=== PATIENT | female | born 1935 | race Caucasian/White ===

== ENCOUNTER 2017-03-05 09:05 | Inpatient (IN) ==
[2017-03-05] MEDS ORDERED: SODIUM CHLORIDE 0.9% 500 ML IV STA (09:40)
--- NOTE | 2017-03-05 09:45 | Emergency Department Note ---
Alcides Barlow Hilary, am scribing for, and in the presence of, Lj Horn MD 09: 44. Justina Barlow James D, MD, personally performed the services described in this documentation, ascribed by Lilia Mcgrath in my presence, and it is both accurate and complete 944 . Arrival - Arrival Chief Complaint: Neuro Stated Complaint: both legs problems and arms went out ED Nursing Triage Note: reports started having trouble moving her legs on thursday night. has to hold onto something to walk. reports also has been having some trouble with her right arm and it feels floppy. reports feels a little confused. has a hx of left femur fx in november. Mode of Arrival: Wheelchair Limitations: No Limitations Source: Patient, RN Notes Reviewed - History of Present Illness HPI Narrative: Pt is a 81 y/o female presenting to the ED with c/o right sided weakness which onset 2 days ago. Pt states that 2 days she woke up and her right leg was "dragging" and she wasn't walking well and now her right arm feels "funny". Last known well time is when she went to bed on 03/02/17. She confirms right sided weakness but denies WYNNE or blurry vision. Pt has a PMHX of HTN, TIA, Dyslipidemia and IBS. No other complaints or problems stated in the ED. Onset (ago): day(s) Consistency: constant Severity: mild Severity scale (1-10): 1 Allergies/Adverse Reactions: Allergies Allergy/AdvReac Type Severity Reaction Status Date / Time codeine Allergy Unknown/Unable Verified 03/05/17 09:24 to obtain Penicillins Allergy Unknown/Unable Verified 03/05/17 09:24 to obtain Sulfa (Sulfonamide Allergy Unknown/Unable Verified 03/05/17 09:24 Antibiotics) to obtain Review of System - Review of System 12 point system: reviewed and no additional remarkable complaints except as stated - Review of System Constitutional: Present: weakness. Absent: fever Eyes: Absent: vision change Neurological: Present: weakness. Absent: headache Medical,Surgical,& Family Hx - Medical History Cardio: History of: Hypertension Neurology: History of: TIA Endocrine: History of: Dyslipidemia Gastrointestinal: History of: GI Problems (ibs) - Social History Smoking Status: Former smoker Exam Physical Examination: GENERAL: This is a well-nourished, well-developed white female in no apparent distress. VITAL SIGNS: Temperature: 97.4 Pulse: 70 Respiratory: 18 Blood Pressure: 107 /77 O2 Sat: 95 HEENT: Head is normocephalic and atraumatic. Pupils are equally round and reactive to light. Extraocular movement are intact. Oropharynx is benign with moist mucous membranes. NECK: Neck is soft and supple without tenderness. There are no masses. There is no lymphadenopathy. LUNGS: Lungs are clear to auscultation bilaterally. Chest rises symmetrically. There is no chest wall tenderness. CV: Heart is regular rate and rhythm without murmurs, rubs, or gallops. ABDOMEN: Abdomen is soft, non-tender to palpation. There are no abnormal masses palpated. There is no organomegaly. Bowel sounds are present and active. SKIN: Skin is warm and dry. No rash. EXTREMITIES: Patient has full range of motion without tenderness. There is no pedal edema. NEUROLOGIC: Awake, alert, and oriented x4. Cranial nerves II through XII are grossly intact. Right upper extremity weakness 4/5, right lower extremity weakness 4/5, all other extremities 5/5. There is no visual deficit. PSYCHIATRIC: Normal affect. Normal mood. Vital Signs: Vital Signs Temperature 97.4 F L 03/05/17 09:18 Pulse Rate 70 03/05/17 09:18 Respiratory Rate 18 03/05/17 09:18 Blood Pressure 107/77 03/05/17 09:18 O2 Sat by Pulse Oximetry 95 03/05/17 09:18 Course Course Narrative: Patient is not a candidate for TPA due to length of time since onset of symptoms. Last known well time was bedtime of 03/02/2017. - Consultations Consultation #1: Discussed with hospitalist. Patient will be admitted to their service. Time: 11:03 Results - Labs CBC & BMP: 03/05/17 10:05 03/05/17 10:05 Lab Results: I have reviewed the patients labs - EKG EKG results: interpreted by ERMD - Impressions EKG: Normal sinus rhythm with rate of 61, low voltage QRS, old anterior and old inferior [place]. Normal axis. - Diagnostic Findings Procedure: Chest x-ray: image reviewed by me (No infiltrates, no pleural effusions.), CT: image reviewed by me (CT head: No acute intracranial lesion or hemorrhage) Disposition Clinical Impression: Stroke Case discussed with: patient, patient's family Disposition: Still a Patient Condition: Stable NIH Stroke Score - Stroke Score Initial Assessment Level of Consciousness: Alert Level of Consciousness Questions: Answers Both Correctly Level of Consciousness Commands: Obeys Both Correctly Best Gaze: Normal Visual Hickman: No Visual Loss Facial Palsy: Normal Motor - Right Arm: Drift Motor - Left Arm: No Drift Motor - Right Leg: Drift Motor - Left Leg: No Drift Limb Ataxia: Absent Sensory (Pin Prick): Normal Best Language: Normal Dysarthria: Normal Extinction / Inattention (Neglect): No Neglect NIH Stroke Score: 2
--- NOTE | 2017-03-05 10:17 | EKG Report ---
Stationary ECG Study [facility] ER Test Date: 03/05/2017 10:15:09 AM Pat Name: ERLIN LANDON Department: Room: Gender: F Business Services Representative: : 1935 Requested by: Lj Hernandez Order Number: [id number] Reading MD: PADMINI CALERO Intervals [place] Rate: 61 P: 18 [place]: 142 QRS: 0 QRSD: 76 T: 40 QT: 410 QTc: 412 Interpretive Statements SINUS RHYTHM WITH OCCASIONAL VENTRICULAR PREMATURE COMPLEXES LOW QRS VOLTAGE IN PRECORDIAL LEADS POSSIBLE ANTERIOR MYOCARDIAL INFARCTION, PROBABLY OLD PROBABLE INFERIOR MYOCARDIAL INFARCTION, PROBABLY OLD Electronically Signed On 03-05-17 18:54:30 CDT by PADMINI CALERO [email or web address]
--- NOTE | 2017-03-05 10:22 | CT Report ---
Exam: CT scan of brain without contrast Date: 03/05/2017 Indication: Hemiparesis Comparison: None Patient's classification: Emergency department Technical: Images were obtained from the skull base to the vertex without the use of intravenous contrast. Dose reduction was performed with decreasing kv and mA and automated exposure Total DLP: 1025.6 mGy*cm Findings: The brainstem is unremarkable. The cerebellum is intact. Cerebral hemispheres reveal mild atrophic changes of the frontal lobes. The ventricles are slightly prominent. The paranasal sinuses globes and sella and mastoids are intact. Minimal vascular plaque in the internal carotid arteries. Impression: 1.Mild atrophy and small vessel disease without acute hemorrhage, infarction or mass effect. PROCEDURE INTERPRETED AT [facility] DEPARTMENT OF RADIOLOGY Final Report Signed by: Dr. Madi Lamas
[2017-03-05 10:24] LABS: Basophils % 0.6 % (0.0-0.8); Eosinophils # 0.1 10*3/uL (0.0-0.87); Eosinophils % 0.8 % (0.00-10.9); Hematocrit 42.8 VOL% (35.7-47.0); Hemoglobin 14.5 GM/DL (12.0-16.0); Immature Granulocytes % 0.5 %; Immature Granulocytes Absolute 0.03 #; Lymphocytes % 32.4 % (21.3-54.2); Mean Corpuscular HGB Conc 33.9 GM/DL (32-36); Mean Corpuscular Hemoglobin 33 PG (27-34); Mean Corpuscular Volume 97.5 FL (87-102); Monocytes # 0.4 10*3/uL (0.11-0.8); Monocytes % 5.6 % (1.7-12.7); Neutrophils # 3.7 10*3/uL (1.4-7.4); Neutrophils % 60.1 % (38.7-73.9); Platelet Count 222 T/CUMM (130-400); Red Blood Count 4.39 MC/CUMM (3.8-5.5); Red Cell Distribution Width 12.8 % (9.3-17.3); White Blood Count 6.2 T/CUMM (4-12)
--- NOTE | 2017-03-05 10:29 | XRay Report ---
Exam: XR chest 1V portable Date: 03/05/2017 9:41 AM Indication: Cardiomegaly Comparison: 07/22/2012 Technical: AP Findings: Mild interstitial thickening in the perihilar regions. There is a component of scarring suspected in the perihilar regions. Tiny low volume effusions are questioned. Epidural catheter leads have been removed with vertebral plasty changes at the lower thoracic spine. ASVD is present. Impression: 1. Mild interstitial thickening scarring in the perihilar regions. Tiny low volume effusions present suggests possible mild interstitial edema CHF 2. Previous vertebral plasty 3. Removal of the epidural catheter leads PROCEDURE INTERPRETED AT [facility] DEPARTMENT OF RADIOLOGY Final Report Signed by: Dr. Madi Lamas
[2017-03-05 10:49] LABS: PT Patient Result 10.6 SECS; Partial Thromboplastin Time 28.5 SECS (0-40)
[2017-03-05 10:52] LABS: Alanine Aminotransferase 29 U/L (13-56); Albumin 4.3 G/DL (3.4-5.0); Alkaline Phosphatase 127 U/L (45-117); Aspartate Amino Transferase 18 U/L (0-37); Blood Urea Nitrogen 19 MG/DL (7-18); Calcium 9.4 MG/DL (8.5-10.1); Glucose 100 MG/DL (74-106); Osmolality,Calculated 276.7 MOS/KG (273-304); Potassium 4.5 MMOL/L (3.5-5.1); Sodium 138 MMOL/L (136-145); Total Protein 7.6 G/DL (6.4-8.3); Troponin I Only < 0.015 NG/ML (0.00-0.045)
[2017-03-05 10:53] LABS: Apearance,Urine CLEAR (Clear); Bilirubin,Urine Negative (Negative); Blood, Urine Negative (Negative); Glucose,Urine (UA) Negative (Negative); Ketones,Urine Negative (Negative); Nitrite,Urine Negative (Negative); Protein,Urine Negative; RBC,Urine <1 /HPF (0-4); Urine Color Yellow (Yellow); Urine Specific Gravity 1.009 (1.001-1.035); Urine Urobilinogen < 2.0 EU/DL (0.2-1.0); WBC,Urine <1 /HPF (0-6)
[2017-03-05 11:00] LABS: Barbiturates Screen,Urine Negative (Negative); Benzodiazepines Screen,Urine Negative (Negative); Cannabinoid Screen,Urine Negative (Negative); Opiate Screen,Urine Negative (Negative); Phencyclidine Screen,Urine Negative (Negative)
--- NOTE | 2017-03-05 11:58 | Hospitalist History & Physical ---
<Michelle Bauer - Last Filed: 03/05/17 12:24> Assessment and Plan - Time spent with patient Time spent with patient: Greater than 30 minutes (1) Stroke Status: Acute Assessment and plan: 03/05/17 - Will Admit for close Monitoring Notable right sided weakness in arm and leg since Thursday ASA 325mg MRI w/o contrast MRA w/con Manage BP Lipids Carotid US Echo Consult Dr Devries (Neurology) Will discuss with Dr Cochran for further recommendations with care. Current Visit: Yes History of Present Illness Chief complaint: right sided weakness History of present illness: Ms. Frias is a 81 year old white female w/PMHx Hypertension, TIA, dyslipidemia , IBS presented to the ED for further evaluation of right sided arm and leg weakness since Thursday and she noted when she walked using her walker, her right foot would drag behind her. She denies headache, chest pain, shortness of breath, cough, fever or chills. IN ED: Head CT: mild atrophy and small vessel disease without acute hemorrhage, infarction or mass effect. CXR: mild interstitial thickening scarring in the perihilar regions, tiny effusions , mild interstitial edema CHF. Significant LABS: electrolytes WNL, H&H stable , BUN 19 creatinine 0.80. Urinalysis negative. Toxicology negative. She denies smoking (ex-smoker), alcohol intake or illicit drug use. She lives at home alone and performs daily self care without assistance. After discussion with Dr Horn in the ED and Dr Cochran with Hospital Services, it was agreed to admit patient for further evaluation of right sided weakness possible TIA symptoms to the right side. Home medications to be reviewed and reconciliation to follow. Home Medications Medication Instructions Recorded Confirmed Type Aspirin EC Tab 81 mg PO QAM 03/05/17 03/05/17 History Gabapentin [Gabapentin] 300 mg PO QAM 03/05/17 03/05/17 History Loperamide HCl [Loperamide] 2 mg PO QAM PRN 03/05/17 03/05/17 History Sertraline HCl [Sertraline HCl] 100 mg PO QAM 03/05/17 03/05/17 History Valsartan/Hydrochlorothiazide 1 each PO QAM 03/05/17 03/05/17 History [Valsartan-Hctz 160-12.5 mg Tab] carBAMazepine XR TAB [TEGretol XR] 200 mg PO Q12H 03/05/17 03/05/17 History cycloSPORINE OPH EMUL [Restasis] 1 drop BOTH EYES QAM 03/05/17 03/05/17 History Allergies Allergy/AdvReac Type Severity Reaction Status Date / Time codeine Allergy Unknown/Unable Verified 03/05/17 09:24 to obtain Penicillins Allergy Unknown/Unable Verified 03/05/17 09:24 to obtain Sulfa (Sulfonamide Allergy Unknown/Unable Verified 03/05/17 09:24 Antibiotics) to obtain Medical,Surgical,& Family Hx - Medical History Cardio: History of: Hypertension Neurology: History of: TIA Endocrine: History of: Dyslipidemia Gastrointestinal: History of: GI Problems (ibs) - Surgical History Orthopedic Surgeries: Surgical HX of;: Orthopedic Surgery (Femur Fracture repair in November 2016) - Social History Smoking Status: Former smoker Frequency of Alcohol Use: None Type of Drug Use: None Marital Status: Lives With:: Alone Functional capacity: uses cane/walker 12 point system: reviewed and no additional remarkable complaints except as stated - Constitutional Constitutional: Absent: chills, fatigue, fever(s), frequent falls, headache(s) - EENT Eyes: Absent: loss of vision Nose, mouth and throat: Absent: headache(s) - Cardiovascular Cardiovascular: Absent: chest pain at rest, chest pain with activity, diaphoresis, dyspnea, dyspnea on exertion - Respiratory Respiratory: Absent: cough, hemoptysis - Neurological Neurological: Present: abnormal gait (dragging right foot with ambulation;right sided arm and leg weakness) - Psychiatric Psychiatric: Absent: anxiety Exam - Constitutional Vitals: Period Temp Pulse Resp BP Sys/Gracia Pulse Ox Last 24 Hr 97.4 F-97.4 F 70-70 18-18 107-107/77-77 95 General appearance: normal weight, no acute distress - Head Head exam: Present: normal inspection - Eye Eye exam: Present: EOMI Pupils: Present: JONNATHAN - Neck Neck exam: Present: normal inspection. Absent: thyromegaly - Respiratory Respiratory exam: Present: clear to auscultation bilaterally. Absent: rhonchi, stridor, wheezes - Cardiovascular Cardiovascular exam: Present: regular rate and rhythm - GI/Abdominal GI/Abdominal exam: Present: normal bowel sounds, soft. Absent: tenderness, rebound - Extremities Exam Extremities exam: Present: normal inspection, full ROM, edema - Expanded Right Upper Extremity General: Present: normal inspection (right arm strength is notable weak compared to the left) Upper Arm exam: Present: full ROM. Absent: swelling, tenderness, pain Elbow exam: Present: full ROM. Absent: tenderness Forearm wrist exam: Present: normal inspection, full ROM. Absent: tenderness Vascular: Present: brachial pulse - Expanded Right Lower Hip exam: Present: normal inspection, full ROM Lower leg exam: Present: normal inspection, full ROM. Absent: swelling, tenderness Foot/Toe exam: Present: normal inspection (sluggish with movement to right foot and toes, able to lift from bed but with more effort than the left side), full ROM - Neurological Exam Neurological exam: Present: alert, oriented X3 - Psychiatric Psychiatric exam: Present: normal affect, normal mood. Absent: agitated, anxious - Skin Skin exam: Present: normal color, warm, dry Results - Labs CBC & BMP: 03/05/17 10:05 03/05/17 10:05 Lab Results: I have reviewed the past 24 hour labs - EKG EKG results: interpreted by ERMD - Impressions EKG: Normal sinus rhythm with rate of 61, low voltage QRS, old anterior and old inferior [place]. Normal axis. - Diagnostic Findings Procedure: Chest x-ray: report reviewed by me (Mild interstitial thickening in the perihilar region, component of scarring suspected in perihilar region, tiny low volume effusion, epidural catheter leads have been removed with vertebral plasty changes lower thoracic spine), CT: report reviewed by me (Head: Mild atrophy and small vessel disease without acute hemorrhage, infarction or mass effect) Quality Measures - Stroke Onset of Symptoms Date: 03/02/17 <Alvin Cochran - Last Filed: 03/05/17 14:25> History of Present Illness History of present illness: Ms. Frias is a 81 year old female who is being admitted to the hospital with weakness of her right foot and leg. She has a previous history of cerebrovascular disease. CT scan of the head performed in the emergency department demonstrated no acute abnormalities. I have interviewed the patient , examined the patient, and reviewed all the available laboratory and radiographic test results. I agree with the assessment and plans of Michelle Bauer NP. The patient will be admitted to the hospital. She will undergo an MRI and an MRA of the head. She will be treated with aspirin, clopidogrel, and atorvastatin. Neurology has been consulted. Exam - Constitutional Vitals: Period Temp Pulse Resp BP Sys/Gracia Pulse Ox Last 24 Hr 97.4 F-97.4 F 52-70 16-19 107-173/54-98 95-100 Results - Labs CBC & BMP: 03/05/17 10:05 03/05/17 10:05
[2017-03-05] MEDS ORDERED: LABETALOL 20 MG/4 ML SYRINGE IV PRN (12:15)
--- NOTE | 2017-03-05 13:52 | Ultrasound Report ---
Exam: US carotid duplex BI Date: 03/05/2017 12:22 PM Indication: Right-sided weakness TIA Findings: Grayscale color flow analysis and spectral analysis imaging was performed with image stored and captured. Right Side Flow velocities centimeters per second Common carotid artery: 47 Proximal ICA: 42 Distal ICA: 72 External carotid artery: 63 Vertebral artery: 57 ICA/CCA ratio: 1.5 Measurements in millimeters Distal ICA: 3.3 Left SIde Flow velocities centimeters per second Common carotid artery: 63 Proximal ICA: 100 Distal ICA: 113 External carotid artery: 59 Vertebral artery: 61 ICA/CCA ratio: 1.8 Measurements in millimeters Distal ICA: 5.3 Moderate plaque present bilaterally with spectral broadening with some minimal color Mosaic flow present. Impression: 1. 16-49% stenosis suspected bilaterally. If further evaluation is warranted CT angiography may be beneficial Today studies were performed utilizing indirect NASCET criteria The ultrasound images were stored and captured PROCEDURE INTERPRETED AT [facility] DEPARTMENT OF RADIOLOGY Final Report Signed by: Dr. Madi Lamas
--- NOTE | 2017-03-05 16:44 | Magnetic Resonance Report ---
Exam: MRI brain without contrast Exam date: March 05, 2017 at 1612 hours Indication: Recurrent migraines with seizures Comparison: No relevant comparisons Technique: Multiplanar, multisequence magnetic resonance imaging of the brain without intravenous contrast was performed in routine fashion. Axial, coronal and sagittal images submitted for interpretation Findings: Parenchyma: Diffusion restriction involving the left parietal periventricular white matter and posterior external capsule consistent with acute infarction. Scattered punctate areas of T2/FLAIR hyperintensity throughout the deep white matter consistent with microangiopathic small vessel ischemic disease. No mass or midline shift. No intra or extra-axial hemorrhage. Ventricles and sulci: Normal in size and configuration Posterior fossa: Cerebellum, brainstem and cervicomedullary junction are preserved Orbits and sinuses: Globes and orbits are intact. Periorbital and pericavernous spaces are normal. Mild inflammatory changes of the ethmoid sinuses Sella: Pituitary is normal. Osseous: No abnormality of the skull base or calvarium is identified Impression: 1. Acute infarction involving the left parietal lobe and external capsule. 2. Mild microangiopathic small vessel ischemic changes. PROCEDURE INTERPRETED AT [facility] DEPARTMENT OF RADIOLOGY Final Report Signed by: Dread Lucas
[2017-03-05 17:26] LABS: Cholesterol 203 MG/DL (50-200); HDL Cholesterol 63 MG/DL (40-60); Risk Ratio 3.22; Triglycerides 190 MG/DL (2-150); Troponin I Only < 0.015 NG/ML (0.00-0.045)
[2017-03-05] MEDS: SODIUM CHLORIDE 0.9% 1,000 ML IV SCH (18:14)
[2017-03-05] MEDS: ASPIRIN 325 MG TABLET PO SCH (18:14)
--- NOTE | 2017-03-05 20:02 | ECHO Report ---
Xiao Frias Exam Date: 03/05/2017 13:04 Referring Physician: Technologist: Age: 81 Ht (in): Wt (lb): Gender: F Exam Location: [facility] Echo Indications: BP: 107 / 77 HR: 70 Rhythm: Sinus Technical Quality: Poor IMPRESSIONS Normal LV systolic function, ejection fraction 60%. Regional wall motion as described below. Grade 1/4 diastolic dysfunction. Mild mitral and tricuspid regurgitation. MEASUREMENTS (Male / Female) Normal Values 2D ECHO LV Diastolic Diameter PLAX 4.0 cm 4.2 - 5.9 / 3.9 - 5.3 cm LV Systolic Diameter PLAX 2.3 cm LV Fractional Shortening PLAX 41.4 % IVS Diastolic Thickness 0.7 cm 0.6 - 1.0 / 0.6 - 0.9 cm LVPW Diastolic Thickness 0.6 cm 0.6 - 1.0 / 0.6 - 0.9 cm RV Internal Dim ED PLAX 3.1 cm Aortic Root Diameter 3.1 cm LA Systolic Diameter LX 4.0 cm 3.0 - 4.0 / 2.7 - 3.8 cm DOPPLER TR Peak Velocity 273.0 cm/s TR Peak Gradient 29.8 mmHg FINDINGS Left Ventricle Normal left ventricular cavity size. Normal left ventricular wall thickness. Left ventricular ejection fraction is estimated at 60%. There is very poor endocardial resolution which hinders regional wall motion assessment. The basal to mid inferior wall may be relatively more hypokinetic than the remainder of the myocardium. There is grade 1/4 diastolic dysfunction consistent with impaired relaxation. Right Ventricle The right ventricle is normal in size and function. Right Atrium The right atrium is normal in size. Left Atrium Size is at the upper limits of normal. Mitral Valve Morphologically normal mitral valve. Mild mitral valve regurgitation. Aortic Valve Morphologically normal aortic valve without significant sclerosis or stenosis. There is no aortic regurgitation. Tricuspid Valve Morphologically normal tricuspid valve. Mild tricuspid valve regurgitation. Tricuspid regurgitation velocities suggest a PAP of 40 mmHg. Pulmonic Valve Morphologically normal pulmonic valve without significant stenosis. There is no pulmonic regurgitation. Pericardium Normal pericardium without effusion. Aorta Normal ascending aorta dimension. Isha Villeda MD (Electronically Signed) Final Date: 05 March 2017 20:01
[2017-03-06] MEDS: SODIUM CHLORIDE 0.9% 1,000 ML IV SCH (03:34)
[2017-03-06 08:44] LABS: Basophils % 0.6 % (0.0-0.8); Eosinophils # 0.1 10*3/uL (0.0-0.87); Eosinophils % 2.5 % (0.00-10.9); Hematocrit 38.5 VOL% (35.7-47.0); Immature Granulocytes % 0.2 %; Immature Granulocytes Absolute 0.01 #; Lymphocytes # 1.8 10*3/uL (1.4-4.0); Lymphocytes % 37.4 % (21.3-54.2); Mean Corpuscular HGB Conc 33.8 GM/DL (32-36); Mean Corpuscular Hemoglobin 33 PG (27-34); Mean Corpuscular Volume 98.5 FL (87-102); Mean Platelet Volume 10.1 FL (9.6-12.0); Monocytes # 0.2 10*3/uL (0.11-0.8); Monocytes % 3.9 % (1.7-12.7); Neutrophils # 2.7 10*3/uL (1.4-7.4); Neutrophils % 55.4 % (38.7-73.9); Platelet Count 206 T/CUMM (130-400); Red Blood Count 3.91 MC/CUMM (3.8-5.5); Red Cell Distribution Width 12.7 % (9.3-17.3); White Blood Count 4.8 T/CUMM (4-12)
[2017-03-06] MEDS: ASPIRIN 325 MG TABLET PO SCH (09:01)
[2017-03-06 09:03] LABS: Calcium 9.1 MG/DL (8.5-10.1); Osmolality,Calculated 282.4 MOS/KG (273-304); Potassium 4.5 MMOL/L (3.5-5.1)
[2017-03-06] MEDS ORDERED: LOPERAMIDE 2 MG CAPSULE PO PRN (09:34)
[2017-03-06] MEDS ORDERED: VALSARTAN/HCTZ 160-12.5 MG TABLET PO SCH (10:00)
[2017-03-06] MEDS ORDERED: SERTRALINE 100 MG TABLET PO SCH (10:00)
[2017-03-06] MEDS ORDERED: GABAPENTIN 300 MG CAPSULE PO SCH (10:00)
--- NOTE | 2017-03-06 11:12 | Discharge Summary ---
Hospital Course - Hospital Course Hospital Course: Mrs Frias presented after several days of weakness in her right side that wasn' t getting better. She has stroke by exam and L basal ganglia stroke seen on MRI brain. carotids unremarkable and echo with normal EF, no clot. Tchol 203. She is accepted to [facility] this morning and will go today for rehab. She has been on asa already- change to Plavix. Recommend adding statin to her regimen- Dr Jaycob huntley. - Time spent with patient Time with patient DS: Greater than 30 minutes (36 minutes spent in coordinating care, medicine reconciliation, documentation.) Diagnosis - Discharge Diagnosis (1) Acute CVA (cerebrovascular accident) Status: Acute (2) Hyperlipidemia Status: Chronic (3) Hypertension Status: Chronic Specialty Discharge - Follow Up or Referrals Follow up with: Your, PCP [Other] (when DC from [facility] ) Discharge Plan - Discharge Data Disposition: Disch/Xfer-Ip Rehab Fac Condition at Discharge: Stable Discharge Diet: heart healthy Activity: as per physical therapy - Discharge Medications New Clopidogrel [Plavix] 75 mg PO DAILY tablet Continue cycloSPORINE OPH EMUL [Restasis] 1 drop BOTH EYES QAM carBAMazepine XR TAB [TEGretol XR] 200 mg PO Q12H Valsartan/Hydrochlorothiazide [Valsartan-Hctz 160-12.5 mg Tab] 1 each PO QAM Loperamide HCl [Loperamide] 2 mg PO QAM PRN PRN Reason: Diarrhea Gabapentin 300 mg PO QAM Sertraline HCl 100 mg PO QAM Aspirin EC Tab 81 mg PO QAM - Follow Up or Referral Follow Up: Your, PCP [Other] (when DC from [facility] ) - Forms/Instructions Instructions: Ischemic Stroke (DC) Exam - Constitutional Vitals: Period Temp Pulse Resp BP Sys/Gracia Pulse Ox Last 24 Hr 97.0 F-98.2 F 52-66 16-20 121-173/56-85 93-100 General appearance: normal weight, no acute distress - Eye Eye exam: Present: EOMI. Absent: scleral icterus - Respiratory Respiratory exam: Present: clear to auscultation bilaterally - Cardiovascular Cardiovascular exam: Present: regular rate and rhythm - GI/Abdominal GI/Abdominal exam: Present: normal bowel sounds, soft. Absent: tenderness - Extremities Exam Extremities exam: Absent: edema - Neurological Exam Neurological exam: Present: alert, oriented X3, CN II-XII intact, motor sensory deficit (right upper and lower extremity weakness) Discharge Results Labs on day of discharge: Labs from last 24 hours 03/06/17 03/06/17 03/06/17 08:35 08:35 08:35 WBC 4.8 RBC 3.91 Hgb 13.0 Hct 38.5 MCV 98.5 MCH 33 MCHC 33.8 RDW 12.7 Plt Count 206 MPV 10.1 Neut % (Auto) 55.4 Lymph % (Auto) 37.4 Garvin % (Auto) 3.9 Eos % (Auto) 2.5 Baso % (Auto) 0.6 Neut # (Auto) 2.7 Lymph # (Auto) 1.8 Garvin # (Auto) 0.2 Eos # (Auto) 0.1 Baso # (Auto) 0.0 Immature Gran % 0.2 Nucleated RBC % 0.0 Immature Gran # 0.01 Nucleated RBCs # 0.00 Immature Plt Fraction 0.0 Circ Anticoag PTT 25.8 Sodium 140 Potassium 4.5 Chloride 105 Carbon Dioxide 30 Anion Gap 9.5 BUN 19 H Creatinine 0.80 GFR Calculation 61 BUN/Creatinine Ratio 23.00 H Glucose 136 H Hemoglobin A1c Calculated Osmolality 282.4 Calcium 9.1 Troponin I Triglycerides Cholesterol LDL Cholesterol VLDL Cholesterol HDL Cholesterol Heart Disease Risk Ratio 03/05/17 03/05/17 03/05/17 21:26 19:04 15:38 WBC RBC Hgb Hct MCV MCH MCHC RDW Plt Count MPV Neut % (Auto) Lymph % (Auto) Garvin % (Auto) Eos % (Auto) Baso % (Auto) Neut # (Auto) Lymph # (Auto) Garvin # (Auto) Eos # (Auto) Baso # (Auto) Immature Gran % Nucleated RBC % Immature Gran # Nucleated RBCs # Immature Plt Fraction Circ Anticoag PTT Sodium Potassium Chloride Carbon Dioxide Anion Gap BUN Creatinine GFR Calculation BUN/Creatinine Ratio Glucose Hemoglobin A1c Calculated Osmolality Calcium Troponin I < 0.015 < 0.015 < 0.015 Triglycerides 190 H Cholesterol 203 H LDL Cholesterol 113.0 VLDL Cholesterol 38.0 HDL Cholesterol 63 H Heart Disease Risk Ratio 3.22 03/05/17 10:05 WBC RBC Hgb Hct MCV MCH MCHC RDW Plt Count MPV Neut % (Auto) Lymph % (Auto) Garvin % (Auto) Eos % (Auto) Baso % (Auto) Neut # (Auto) Lymph # (Auto) Garvin # (Auto) Eos # (Auto) Baso # (Auto) Immature Gran % Nucleated RBC % Immature Gran # Nucleated RBCs # Immature Plt Fraction Circ Anticoag PTT Sodium Potassium Chloride Carbon Dioxide Anion Gap BUN Creatinine GFR Calculation BUN/Creatinine Ratio Glucose Hemoglobin A1c 5.8 Calculated Osmolality Calcium Troponin I Triglycerides Cholesterol LDL Cholesterol VLDL Cholesterol HDL Cholesterol Heart Disease Risk Ratio DS: Provider Date of admission: 03/05/17 11:23 Primary care physician: Cece Fowler Attending physician on admission: Alvin Cochran Consults: 03/05/17 12:15 Consult to Case Mgmt/Social Srvs [CONS] Routine Reason for Case Mgmt/Social Srvs: Discharge Planning Consult to Occupational Therapy [CONS] Routine Reason for Occupational Therapy: Evaluate and Treat Consult Comment: Stroke Consult to Physical Therapy [CONS] Routine Reason for Physical Therapy: Evaluate and Treat Consult Comment: stroke 03/05/17 12:21 Consult to Physician [CONS] Routine Comment: Consulting Provider: Larry Devries Consulting Provider Notified: Yes When should Consulting Provider be notified: Now Consult to Specialist Group: Neurology When should Consulting Provider be notified: Now Person Notified: MERRY Date Notified: 03/05/17 Time Notified: 15:34 Consult Notification Comment: right sided weakness (arm and leg) with foot drag with ambulation onset of Thursday Morning Discharging clinician: Joy Merrill MD
--- NOTE | 2017-03-06 11:28 | Neurology Consult Note ---
History of Present Illness History of present illness: Ms. Frias is a 81 year old right-handed white lady w/PMHx significant for hypertension, TIA, dyslipidemia, IBS presented to the ED for further evaluation of right arm and leg weakness since Thursday morning and she noted when she walked using her walker, her right foot would drag behind her. She denies headache, chest pain, shortness of breath, cough, fever or chills. No speech difficulties or swallowing problems reported. She has marked difficulty in walking at this point. She lives at home alone and performs daily self care without assistance. MRI of the brain left basal ganglia acute infarct. Carotid ultrasound is unremarkable. Echocardiogram showed ejection fraction of 60%. Triglycerides 190 cholesterol 203. Home Medications Medication Instructions Recorded Confirmed Type Aspirin EC Tab 81 mg PO QAM 03/05/17 03/05/17 History Gabapentin 300 mg PO QAM 03/05/17 03/05/17 History Loperamide HCl [Loperamide] 2 mg PO QAM PRN 03/05/17 03/05/17 History Sertraline HCl 100 mg PO QAM 03/05/17 03/05/17 History Valsartan/Hydrochlorothiazide 1 each PO QAM 03/05/17 03/05/17 History [Valsartan-Hctz 160-12.5 mg Tab] carBAMazepine XR TAB [TEGretol XR] 200 mg PO Q12H 03/05/17 03/05/17 History cycloSPORINE OPH EMUL [Restasis] 1 drop BOTH EYES QAM 03/05/17 03/05/17 History Clopidogrel [Plavix] 75 mg PO DAILY tablet 03/06/17 Rx Allergies Allergy/AdvReac Type Severity Reaction Status Date / Time codeine Allergy Unknown/Unable Verified 03/05/17 09:24 to obtain Penicillins Allergy Unknown/Unable Verified 03/05/17 09:24 to obtain Sulfa (Sulfonamide Allergy Unknown/Unable Verified 03/05/17 09:24 Antibiotics) to obtain 12 point system: reviewed and no additional remarkable complaints except as stated Medical,Surgical,& Family Hx - Medical History Cardio: History of: Hypertension Neurology: History of: TIA Endocrine: History of: Dyslipidemia Gastrointestinal: History of: GI Problems (ibs) - Surgical History Orthopedic Surgeries: Surgical HX of;: Orthopedic Surgery (Femur Fracture repair in November 2016) - Social History Smoking Status: Former smoker Frequency of Alcohol Use: None Type of Drug Use: None Exam - Constitutional Vitals: Period Temp Pulse Resp BP Sys/Gracia Pulse Ox Last 24 Hr 97.0 F-98.2 F 52-66 16-20 121-173/56-85 93-100 Exam: GENERAL: Patient is in no acute distress. NECK: Neck is supple. There is no JVD. No carotid bruits present. No thyroid masses. CVS: First and second heart sounds are normal. There is no S3 present. Regular rate and rhythm. RESPIRATORY: Lungs are clear to auscultation without any rales or rhonchi. ABDOMEN: Soft and non-tender. Bowel sounds are present. There is no hepatosplenomegaly. EXT: There is no palpable edema. Peripheral pulses are present. Skin: No rashes Central Nervous system: General: Alert, awake and Oriented x 3 Speech: Fluent Comprehension: Intact and normal Facial expressions: Normal Cranial Nerves: CN1/Olfactory: Normal CN II/ Optic: Normal, Visual Hickman unreliable CN III, and : JONNATHAN & EOMI CN V: Normal & intact CN VII: face is symmetric CNVIII: Normal CN XI/X/XI/XII: Intact and Normal Motor: Bulk and Tone is normal. Strength in the right 3/5 Strength in the left 5/5 Sensory: Decreased for all the modalities of PP, LT and temp sense in the right Reflexes: 1+ and symmetrical Cerebellar function: Slow finger to nose and heel to segura testing in the right. Toes: Equivocal Gait: Not tested at this time Results - Labs CBC & BMP: 03/06/17 08:35 03/06/17 08:35 Assessment and Plan (1) Acute CVA (cerebrovascular accident) Status: Acute Assessment and plan: Stop aspirin and Plavix. Eliquis 5 mg p.o. twice daily Consult TMR/okay to go to [facility] today Current Visit: Yes (2) Hyperlipidemia Status: Acute Assessment and plan: Add Lipitor 10 mg p.o. daily Current Visit: Yes (3) Hypertension Status: Acute Assessment and plan: Continue current medications. Check vitals per routine. Current Visit: Yes Specialty Discharge - Follow Up or Referrals Follow up with: Your, PCP [Other] (when DC from [facility] )
[2017-03-06] MEDS ORDERED: CLOPIDOGREL 75 MG TABLET PO SCH (11:30)
[2017-03-06 12:52] VITALS: BP 95/83
[2017-03-06] MEDS ORDERED: APIXABAN 5 MG TABLET PO SCH (21:00)
[2017-03-06] MEDS ORDERED: ATORVASTATIN 10 MG TABLET PO SCH (21:00)
[2017-03-07] MEDS ORDERED: cycloSPORINE OPH EMUL 1 VIAL BOTH EYES SCH (09:00)
== END 2017-03-06 12:45 | DRG 65 ==
LOC: N.ED 09:05 → SUATTDRO 11:23 → N.EDINP 11:23 → N.4E 14:20
PROVIDERS: ATTEND Internal Medicine

== ENCOUNTER 2019-01-25 09:48 | Observation (INO) ==
[2019-01-25 10:41] LABS: INR 0.9; PT Patient Result 10.1 SECS
[2019-01-25 10:45] LABS: Basophils % 0.6 % (0.0-0.8); Eosinophils # 0.1 10*3/uL (0.0-0.87); Eosinophils % 1.3 % (0.00-10.9); Hematocrit 38.5 VOL% (35.7-47.0); Hemoglobin 12.9 GM/DL (12.0-16.0); Immature Granulocytes % 0.5 %; Immature Granulocytes Absolute 0.03 #; Lymphocytes # 1.7 10*3/uL (1.4-4.0); Lymphocytes % 27.8 % (21.3-54.2); Mean Corpuscular HGB Conc 33.5 GM/DL (32-36); Mean Corpuscular Volume 98.5 FL (87-102); Mean Platelet Volume 10.4 FL (9.6-12.0); Monocytes % 6.1 % (1.7-12.7); Neutrophils % 63.7 % (38.7-73.9); Platelet Count 204 T/CUMM (130-400); Red Blood Count 3.91 MC/CUMM (3.8-5.5); Red Cell Distribution Width 12.3 % (9.3-17.3); White Blood Count 6.2 T/CUMM (4-12)
[2019-01-25 10:51] LABS: Albumin 4.1 G/DL (3.4-5.0); Bilirubin,Total 0.5 MG/DL (0.2-1.0); Calcium 9.2 MG/DL (8.5-10.1); Osmolality,Calculated 282.1 MOS/KG (273-304); Total Protein 7.1 G/DL (6.4-8.3)
[2019-01-25 11:34] LABS: Apearance,Urine Slightly Hazy (Clear); Bacteria,Urine Occasional /HPF (Few); Bilirubin,Urine Negative (Negative); Blood, Urine Negative (Negative); Glucose,Urine (UA) Negative (Negative); Ketones,Urine Negative (Negative); Mucus,Urine Occasional /LPF (Occasional); Nitrite,Urine Positive (Negative); Protein,Urine Negative; RBC,Urine 4 /HPF (0-4); Squamous Epithelial Cell,Urine Moderate /HPF (0-10); Transitional Epi Cells,Urine Occasional /HPF (<1); Urine Color Yellow (Yellow); Urine Specific Gravity 1.014 (1.001-1.035); Urine Urobilinogen < 2.0 EU/DL (0.2-1.0); WBC,Urine 7 /HPF (0-6)
[2019-01-25 11:35] LABS: Barbiturates Screen,Urine Negative (Negative); Benzodiazepines Screen,Urine Negative (Negative); Cannabinoid Screen,Urine Negative (Negative); Opiate Screen,Urine Negative (Negative); Phencyclidine Screen,Urine Negative (Negative)
[2019-01-25] MEDS ORDERED: LEVOFLOXACIN INJ 500 MG in PREMIX 1 EACH IV STA (11:56)
[2019-01-25] MEDS ORDERED: DOCUSATE SODIUM 100 MG CAPSULE PO PRN (13:49)
[2019-01-25] MEDS ORDERED: ACETAMINOPHEN 325 MG TABLET PO PRN (13:49)
[2019-01-25] MEDS ORDERED: ONDANSETRON 4 MG/2 ML VIAL IV PRN (13:49)
[2019-01-25] MEDS ORDERED: traZODone 50 MG TABLET PO PRN (13:49)
[2019-01-25] MEDS ORDERED: LOPERAMIDE 2 MG CAPSULE PO PRN (14:46)
[2019-01-25] MEDS ORDERED: CELECOXIB 200 MG CAPSULE PO PRN (14:46)
[2019-01-25] MEDS: ENOXAPARIN 40 MG/0.4 ML SYRINGE SUBCUT SCH (21:30)
[2019-01-26 05:53] LABS: Basophils # 0.1 10*3/uL (0.0-0.2); Basophils % 0.8 % (0.0-0.8); Eosinophils # 0.2 10*3/uL (0.0-0.87); Eosinophils % 2.4 % (0.00-10.9); Hematocrit 37.2 VOL% (35.7-47.0); Hemoglobin 12.3 GM/DL (12.0-16.0); Immature Granulocytes % 0.5 %; Immature Granulocytes Absolute 0.03 #; Lymphocytes # 2.1 10*3/uL (1.4-4.0); Lymphocytes % 32.5 % (21.3-54.2); Mean Corpuscular HGB Conc 33.1 GM/DL (32-36); Mean Corpuscular Volume 99.2 FL (87-102); Mean Platelet Volume 10.9 FL (9.6-12.0); Monocytes % 7.5 % (1.7-12.7); Neutrophils % 56.3 % (38.7-73.9); Platelet Count 179 T/CUMM (130-400); Red Blood Count 3.75 MC/CUMM (3.8-5.5); Red Cell Distribution Width 12.3 % (9.3-17.3); White Blood Count 6.4 T/CUMM (4-12)
[2019-01-26 06:20] LABS: Risk Ratio 3.87; VLDL CHOLESTEROL 60.6 MG/DL
[2019-01-26 06:36] LABS: Osmolality,Calculated 277.4 MOS/KG (273-304); Thyroid Stimulating Hormone 1.07 uIU/ml (0.358-3.74)
[2019-01-26] MEDS: LOSARTAN 50 MG TABLET PO SCH (08:35)
[2019-01-26] MEDS: ASPIRIN EC 81 MG TABLET PO SCH (08:35)
[2019-01-26] MEDS: CLOPIDOGREL 75 MG TABLET PO SCH (08:35)
[2019-01-26] MEDS: LOSARTAN/HCTZ 50-12.5 MG TABLET PO SCH (08:35)
[2019-01-26] MEDS: PANTOPRAZOLE 40 MG TABLET PO SCH (08:35)
[2019-01-26] MEDS: ENOXAPARIN 40 MG/0.4 ML SYRINGE SUBCUT SCH (21:30)
[2019-01-27 04:56] LABS: Basophils % 0.6 % (0.0-0.8); Eosinophils # 0.1 10*3/uL (0.0-0.87); Eosinophils % 1.6 % (0.00-10.9); Hematocrit 37.6 VOL% (35.7-47.0); Hemoglobin 12.4 GM/DL (12.0-16.0); Immature Granulocytes % 0.4 %; Immature Granulocytes Absolute 0.03 #; Lymphocytes # 2.4 10*3/uL (1.4-4.0); Lymphocytes % 35.4 % (21.3-54.2); Mean Corpuscular Volume 98.7 FL (87-102); Monocytes % 6.1 % (1.7-12.7); Neutrophils % 55.9 % (38.7-73.9); Platelet Count 192 T/CUMM (130-400); Red Blood Count 3.81 MC/CUMM (3.8-5.5); Red Cell Distribution Width 12.4 % (9.3-17.3); White Blood Count 6.7 T/CUMM (4-12)
[2019-01-27 05:20] LABS: Calcium 9.1 MG/DL (8.5-10.1); Osmolality,Calculated 282.3 MOS/KG (273-304)
[2019-01-27] MEDS ORDERED: CYANOCOBALAMIN 1000 MCG/1 ML VIAL IM SCH (09:00)
[2019-01-27] MEDS: PANTOPRAZOLE 40 MG TABLET PO SCH (09:11)
[2019-01-27] MEDS: LOSARTAN/HCTZ 50-12.5 MG TABLET PO SCH (09:11)
[2019-01-27] MEDS: ASPIRIN EC 81 MG TABLET PO SCH (09:11)
[2019-01-27] MEDS: LOSARTAN 50 MG TABLET PO SCH (09:11)
[2019-01-27] MEDS: CLOPIDOGREL 75 MG TABLET PO SCH (09:11)
[2019-01-27] MEDS ORDERED: LEVOFLOXACIN INJ 500 MG in PREMIX 1 EACH IV ONE (13:00)
[2019-01-27] MEDS ORDERED: LEVOFLOXACIN INJ 500 MG in PREMIX 1 EACH IV SCH (14:00)
[2019-01-27 16:30] VITALS: BP 102/64
[2019-01-27] MEDS ORDERED: ATORVASTATIN 20 MG TABLET PO SCH (21:00)
[2019-01-27] MEDS ORDERED: NITROFURANTOIN MACRO/MONO 100 MG CAPSULE PO SCH (21:00)
[2019-01-28] MEDS ORDERED: LEVOFLOXACIN INJ 250 MG in PREMIX 1 EACH IV SCH (13:00)
== END 2019-01-27 17:15 ==
LOC: N.EDINP 09:48 → N.ED 09:48 → N.2E 14:05
PROVIDERS: ADMIT Internal Medicine; ATTEND Internal Medicine